=== PATIENT | male | born 1955 ===

== ENCOUNTER 2021-07-17 17:23 | Outpatient (REF) | payer BC, SELFPAY ==
[2021-07-21 09:07] LABS: PSA, Screening 5.7 ng/mL (0.0-4.5)
== END 2021-07-17 17:24 | disposition home or self-care (01) ==
LOC: NCHCN 17:23
PROVIDERS: PCP Nurse Practitioner Family; Visit Provider Registered Nurse
DX: Z12.5 Encounter for screening for malignant neoplasm of prostate (principal)
CPT/HCPCS: 84153

== ENCOUNTER 2021-08-11 16:22 | Outpatient (REF) | payer BC, SELFPAY ==
[2021-08-12 16:52] LABS: PSA, Screening 5.7 ng/mL (0.0-4.5)
== END 2021-08-11 16:23 | disposition home or self-care (01) ==
LOC: NCHCN 16:22
PROVIDERS: PCP Nurse Practitioner Family; Visit Provider Registered Nurse
DX: Z12.5 Encounter for screening for malignant neoplasm of prostate
CPT/HCPCS: 84153

== ENCOUNTER 2022-07-23 19:41 | Outpatient (REF) | payer BC, SELFPAY ==
[2022-07-23 20:12] LABS: Calculated LDL 175 mg/dL (<100); Cholesterol 251 mg/dL (<200); HDL Cholesterol 59 mg/dL (40-60); Triglyceride 86 mg/dL (<150)
[2022-07-24 20:45] LABS: PSA, Diagnostic 9.2 ng/mL (<=4.5)
== END 2022-07-23 19:42 | disposition home or self-care (01) ==
LOC: NCHCN 19:41
PROVIDERS: PCP Nurse Practitioner Family; Visit Provider Registered Nurse
DX: C61 Malignant neoplasm of prostate (principal); Z13.220 Encounter for screening for lipoid disorders; Z00.00 Encounter for general adult medical examination without abnormal findings
CPT/HCPCS: 80061; 84153

== ENCOUNTER 2022-08-06 14:13 | Outpatient (REF) | payer BC, SELFPAY ==
[2022-08-06 21:29] LABS: Anion Gap 6.9 mmol/L (3-11); BUN 17 mg/dL (7-18); CO2 29.1 mmol/L (21.0-32.0); Calcium 8.8 mg/dL (8.5-10.1); Chloride 103 mmol/L (98-107); Estimated GFR 83.01 (mL/min/1.73m2); Glucose 89 mg/dL (74-106); Potassium 3.9 mmol/L (3.5-5.1); Sodium 139 mmol/L (136-145)
== END 2022-08-06 14:14 | disposition home or self-care (01) ==
LOC: NCHCN 14:13
PROVIDERS: PCP Nurse Practitioner Family; Visit Provider Registered Nurse
DX: Z00.00 Encounter for general adult medical examination without abnormal findings (principal); Z13.228 Encounter for screening for other metabolic disorders
CPT/HCPCS: 80048

== ENCOUNTER 2023-02-08 15:14 | Outpatient (REF) | payer BC, SELFPAY ==
[2023-02-09 20:20] LABS: PSA, Diagnostic 9.4 ng/mL (<=4.5)
== END 2023-02-08 15:15 | disposition home or self-care (01) ==
LOC: LBN 15:14
PROVIDERS: PCP Nurse Practitioner Family; Referring Provider Registered Nurse; Visit Provider Urology
DX: C61 Malignant neoplasm of prostate (principal)
CPT/HCPCS: 84153

== ENCOUNTER 2023-07-16 12:09 | Outpatient (REF) | payer MEDICARE, BC, SELFPAY ==
[2023-07-16 22:34] LABS: PSA, Diagnostic 10.6 ng/mL (<=4.5)
== END 2023-07-16 12:10 | disposition home or self-care (01) ==
LOC: LBN 12:09
PROVIDERS: PCP Nurse Practitioner Family; Visit Provider Urology
DX: C61 Malignant neoplasm of prostate (principal)
CPT/HCPCS: 84153; 84439; 84443

== ENCOUNTER 2023-08-11 18:04 | Outpatient (REF) | payer MEDICARE, BC, SELFPAY ==
[2023-08-11 21:00] LABS: HCT 42.1 % (40.0-50.0); MCH 29.7 pg (27.0-33.0); MCHC 33.3 % (32.0-36.0); MCV 89 fL (80-95); MPV 9.9 fL (8.0-11.0); Platelet Count 199 10^3/uL (130-400); RBC 4.71 10^6/uL (4.36-5.78); RDW 12.6 % (11.8-14.1); RDW-SD 41.3 fL; WBC 5.78 10^3/uL (4.4-10.8)
[2023-08-11 21:30] LABS: ALT 28 U/L (16-63); AST 25 U/L (15-37); Albumin 3.8 g/dL (3.4-5.0); Alkaline Phosphatase 69 U/L (46-116); Anion Gap 5.7 mmol/L (3-11); BUN 19 mg/dL (7-18); Bilirubin, Total 0.3 mg/dL (0.2-1.0); CO2 28.3 mmol/L (21.0-32.0); CREATININE 0.9 mg/dL (0.70-1.30); Calcium 8.7 mg/dL (8.5-10.1); Calculated LDL 157 mg/dL (<100); Chloride 106 mmol/L (98-107); Cholesterol 229 mg/dL (<200); Estimated GFR 93.61 (mL/min/1.73m2); Glucose 100 mg/dL (74-106); HDL Cholesterol 54 mg/dL (40-60); Potassium 4.2 mmol/L (3.5-5.1); Sodium 140 mmol/L (136-145); Total Protein 7.5 g/dL (6.4-8.2); Triglyceride 91 mg/dL (<150)
[2023-08-11 21:47] LABS: Vitamin D 25 Total 30.8 ng/mL (30-100)
== END 2023-08-11 18:05 | disposition home or self-care (01) ==
LOC: NCHCN 18:04
PROVIDERS: PCP Nurse Practitioner Family; Visit Provider Nurse Practitioner Family
DX: E55.9 Vitamin D deficiency, unspecified (principal); R79.89 Other specified abnormal findings of blood chemistry
CPT/HCPCS: 80053; 80061; 82306; 85027

== ENCOUNTER 2024-03-09 14:25 | Outpatient (REF) | payer MEDICARE, BC, SELFPAY ==
[2024-03-09 23:37] LABS: PSA, Diagnostic 14.1 ng/mL (<=4.5)
== END 2024-03-09 14:26 | disposition home or self-care (01) ==
LOC: LBN 14:25
PROVIDERS: PCP Nurse Practitioner Family; Visit Provider Urology
DX: C61 Malignant neoplasm of prostate (principal)
CPT/HCPCS: 84153

== ENCOUNTER 2024-10-04 17:18 | Outpatient (REF) | payer MEDICARE, BC, SELFPAY ==
[2024-10-04 22:07] LABS: Anion Gap 7.8 mmol/L (3-11); BUN 23 mg/dL (7-18); CO2 27.2 mmol/L (21.0-32.0); CREATININE 1.1 mg/dL (0.70-1.30); Calculated LDL 145 mg/dL (<100); Chloride 108 mmol/L (98-107); Cholesterol 230 mg/dL (<200); Estimated GFR 73.12 (mL/min/1.73m2); Glucose 98 mg/dL (74-106); HDL Cholesterol 50 mg/dL (>or=40); Potassium 4.5 mmol/L (3.5-5.1); Sodium 143 mmol/L (136-145); Triglyceride 175 mg/dL (<150)
== END 2024-10-04 17:19 | disposition home or self-care (01) ==
LOC: NCHCN 17:18
PROVIDERS: Visit Provider Nurse Practitioner Family
DX: Z00.00 Encounter for general adult medical examination without abnormal findings (principal); Z13.220 Encounter for screening for lipoid disorders
CPT/HCPCS: 80048; 80061

== ENCOUNTER 2025-07-24 09:26 | Outpatient (REF) | payer MEDICARE, BC, SELFPAY | END 2025-07-24 09:27 | disposition home or self-care (01) | LOC: LBN 09:26 | PROVIDERS: Visit Provider Urology | DX: C61 Malignant neoplasm of prostate (principal) | CPT/HCPCS: 84154 ==